=== PATIENT | male | born 2000 | race Caucasian/White ===

== ENCOUNTER → 2022-05-06 18:50 | Outpatient (CLI) | payer OTHER, SELFPAY ==
--- NOTE | 2022-05-06 18:55 | DI.MRI.S_ITS ---
PROCEDURE: MR HEAD/BRAIN WO/W CON INDICATIONS: DIZZINESS GIDDINESS/LT. EAR TINNITUS/VERTIGO TECHNIQUE: Noncontrast axial T1 spin echo, axial T2 fast spin echo, sagittal and axial FLAIR, coronal T2 fast spin echo, axial gradient echo, axial diffusion and ADC through the brain. After the administration of contrast, axial and coronal and sagittal 3D VIBE or T1 spin echo with fat saturation through the brain. COMPARISON: None. FINDINGS: Image quality: Excellent. CSF Spaces: Basal cisterns are patent. No extra-axial fluid collections. Ventricles are normal in size and shape. Brain: No midline shift. No intracranial bleeds. No abnormal intracranial enhancement. The brainstem appears normal. There is mild prominence of the pineal gland demonstrating increased T2 signal suggestive of fluid. No enhancement. Diffusion-weighted images demonstrate no acute ischemic insults. No chronic ischemic insults. Normal intravascular flow voids are present. Skull and face: Calvarial marrow is normal in signal. Orbits appear normal. Sinuses: Sinuses and mastoids appear clear. IMPRESSION: 1. No acute intracranial process. 2. 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 Dictated by: Amanda Rhodes M.D. on 05/09/2022 at 11:31 Approved by: Amanda Rhodes M.D. on 05/09/2022 at 11:35
== END ==
PROVIDERS: Referring Provider Internal Medicine; Visit Provider Internal Medicine
DX: H93.12 Tinnitus, left ear (principal); R42 Dizziness and giddiness
CPT/HCPCS: 70553; A9579

== ENCOUNTER 2022-12-04 16:28 | Emergency (ER) | payer OTHER, SELFPAY ==
[2022-12-04] VITALS (8 sets, daily range): BP systolic 123–151; BP diastolic 76–84; PULSE 90–115; RESP 15–25; TEMP 36.6–36.9; O2SAT 96–100
--- NOTE | 2022-12-04 17:08 | DI.CT.S_ITS ---
PROCEDURE: CT HEAD/BRAIN WO CON INDICATIONS: vertigo TECHNIQUE: Noncontrast 4.5 mm thick angled axial sections acquired from the foramen magnum to the vertex, with coronal and sagittal reformats. For radiation dose reduction, the following was used: automated exposure control, adjustment of mA and/or kV according to patient size. COMPARISON: None. FINDINGS: Image quality: Excellent. CSF spaces: Basal cisterns are patent. No extra-axial fluid collections. Ventricles are normal in size and shape. Brain: No midline shift. No intracranial masses or hemorrhage. Marsh-white matter interface is normal. Skull and face: Calvarium and visualized facial bones are intact, without suspicious lesions. Sinuses: Visualized sinuses and mastoids are clear. IMPRESSION: Normal CT of the brain Approved by: Misael Mathis M.D. on 12/04/2022 at 16:52
--- NOTE | 2022-12-04 17:09 | ED_ITS ---
HPI - Dizziness General Chief Complaint: Dizziness Stated Complaint: Vertigo episode Time Seen by Provider: 12/04/22 17:07 Source: patient Mode of arrival: Ambulatory History of Present Illness HPI Narrative: Patient is a 22-year-old male without significant past medical history but has had episodes of vertigo presenting today with dizziness nausea. reports that they did go out to a bar last night and drank some alcohol. He woke up this morning and was quite dizzy. She reports that he is never been this dizzy. She reports that he was stumbling. He is unable to give significant history he is tearful and seems quite anxious. But moving all of his extremities. He did have an MRI in May of 2022 for vertigo which was negative. He denies any other drug use and denies taking any further medications Related Data Allergies Allergy/AdvReac Type Severity Reaction Status Date / Time No Known Drug Allergies Allergy Verified 12/04/22 17:43 Review of Systems Review of Systems ROS Unobtainable: All systems reviewed & are unremarkable except as noted in HPI and below Exam Initial Vital Signs Initial Vital Signs: Vital Signs Temperature 98.4 F 12/04/22 16:54 Pulse Rate 115 H 12/04/22 16:54 Respiratory Rate 25 H 12/04/22 16:54 Blood Pressure 151/84 H 12/04/22 16:54 Pulse Oximetry 100 12/04/22 16:54 Oxygen Delivery Method Room Air 12/04/22 16:54 GENERAL: Tearful 22-year-old male HEENT: Head atraumatic,EOMI, pupils reactive, face symmetric, moist mucous membranes CARDIOVASCULAR: Regular rate and rhythm without murmurs, rubs or gallops. RESPIRATORY: Tachypneic clear breath sounds bilaterally ABDOMEN: Soft, nontender. Normoactive bowel sounds all 4 quadrants. No guarding or rebound. EXTREMITIES: Normal range of motion, no clubbing or edema. Neurovascularly intact NEUROLOGICAL: Alert and oriented x4. [place] strength equal bilaterally good [id number] SKIN: Warm, dry, no laceration, no petechiae, no rashes or lesions. Course Orders Ordered: Discontinued Medications Sodium Chloride (Normal Saline 0.9%) 1,000 mls @ 1,000 mls/hr IV CONT SAHIL Last Infusion: 12/04/22 18:50 Dose: 0 mls/hr Documented By: Admin: 12/04/22 17:44 Dose: 1,000 mls/hr Documented By: ESTELLA Lorazepam (Lorazepam 2 Mg/Ml Inj) 1 mg IV NOW ONE Stop: 12/04/22 17:08 Last Admin: 12/04/22 17:15 Dose: 1 mg Documented By: BS Vital Signs Vital signs: Vital Signs - 8 hr 12/04/22 16:54 12/04/22 17:22 12/04/22 17:22 Temperature 98.4 F Pulse Rate 115 H 95 H Respiratory Rate 25 H 15 Blood Pressure 151/84 H 132/78 Pulse Oximetry 100 96 Oxygen Delivery Method Room Air 12/04/22 17:36 12/04/22 17:37 12/04/22 17:37 Temperature Pulse Rate 96 H 95 H Respiratory Rate 18 Blood Pressure 123/84 Pulse Oximetry 97 98 Oxygen Delivery Method 12/04/22 18:00 12/04/22 18:00 Temperature Pulse Rate 92 H Respiratory Rate 18 Blood Pressure 133/78 Pulse Oximetry 98 Oxygen Delivery Method MDM - Dizziness Lab Data 12/04/22 17:05 12/04/22 17:05 Labs: Lab Results 12/04/22 12/04/22 12/04/22 Range/Units 17:05 17:05 17:05 WBC 9.9 (4.5-11.0) X10^3/uL RBC 5.20 (4.5-5.9) X10^6/uL Hgb 16.5 (13.5-17.5) g/dL Hct 46.6 (41-53) % MCV 89.7 (80-100) fL MCH 31.7 (26-34) PG MCHC 35.3 (30-36) % RDW 12.8 (11.6-14.8) % Plt Count 255 (150-400) X10^3/uL Neut % (Auto) 64.7 (50-75) % Lymph % (Auto) 26.6 (25-40) % [place] % (Auto) 6.4 (3-14) % Eos % (Auto) 1.7 L (2-4) % Baso % (Auto) 0.6 (0-2) % Neut # (Auto) 6400 (7173-6999) /uL Lymph # (Auto) 2600 (0729-9555) /uL [place] # (Auto) 600 (0-900) /uL Eos # (Auto) 200 (0-450) /uL Baso # (Auto) 100 (0-100) /uL PT 11.6 (10.1-12.7) SECONDS INR 1.0 (0.9-1.3) APTT 28 (26-36) SECONDS Sodium (137-145) mmol/L Potassium (3.4-5.1) mmol/L Chloride (98-107) mmol/L Carbon Dioxide (22-32) mmol/L BUN (9-20) mg/dL Creatinine (0.66-1.25) mg/dL Estimated GFR (>60) mL/min BUN/Creatinine Ratio (6-22) Glucose (70-100) mg/dL Lactate (0.7-2.1) mmol/L Calcium (8.4-10.2) mg/dL Total Bilirubin (0.2-1.3) mg/dL AST (17-59) IU/L ALT (<50) IU/L Alkaline Phosphatase (38-126) U/L Ammonia (9-30) umol/L Total Creatine Kinase 192 H (55-170) U/L CK-MB (CK-2) 0.79 (<2.37) ng/mL CK-MB (CK-2) Rel Index 0.4 L (1.5-5.0) % Troponin I < 0.012 (0.01-0.034) ng/mL Total Protein (6.3-8.2) g/dL Albumin (3.5-5.0) g/dL Globulin (1.7-4.1) g/dL Albumin/Globulin Ratio (1.0-2.8) Procalcitonin 0.03 (<0.5) ng/mL TSH (0.47-4.68) uIU/mL Prolactin (3.7-17.9) ng/mL Urine Color Urine Appearance Urine pH (4.5-8.0) Ur Specific [place] (1.000-1.035) Urine Protein (Negative) Urine Glucose (UA) (Negative) g/dL Urine Ketones (NEGATIVE) Urine Occult Blood (Negative) Urine Nitrate (Negative) Urine Bilirubin (NEGATIVE) Urine Urobilinogen (0.2) E.U./dL Ur Leukocyte Esterase (NEGATIVE) Urine RBC (0-5/HPF) Urine WBC (0-5/HPF) Urine Bacteria (None) Salicylates (<20) mg/dL U Opiates 300ng/mL cut (Negative) Ur Oxycodone Screen (Negative) Urine Methadone Screen (Negative) Acetaminophen (10-30) ug/mL Ur Barbiturates Screen (Negative) U Tricyclic Antidepress (Negative) Ur Phencyclidine Scrn (Negative) Ur Amphetamines Screen (Negative) U Methamphetamines Scrn (Negative) Ur MDMA Scrn (Ecstasy) (Negative) U Benzodiazepines Scrn (Negative) Urine Cocaine Screen (Negative) U Marijuana (THC) Screen (Negative) Ethyl Alcohol ( - 10) mg/dL 12/04/22 12/04/22 12/04/22 Range/Units 17:05 17:05 17:05 WBC (4.5-11.0) X10^3/uL RBC (4.5-5.9) X10^6/uL Hgb (13.5-17.5) g/dL Hct (41-53) % MCV (80-100) fL MCH (26-34) PG MCHC (30-36) % RDW (11.6-14.8) % Plt Count (150-400) X10^3/uL Neut % (Auto) (50-75) % Lymph % (Auto) (25-40) % [place] % (Auto) (3-14) % Eos % (Auto) (2-4) % Baso % (Auto) (0-2) % Neut # (Auto) (4613-7123) /uL Lymph # (Auto) (6688-9782) /uL [place] # (Auto) (0-900) /uL Eos # (Auto) (0-450) /uL Baso # (Auto) (0-100) /uL PT (10.1-12.7) SECONDS INR (0.9-1.3) APTT (26-36) SECONDS Sodium 135 L (137-145) mmol/L Potassium 3.8 (3.4-5.1) mmol/L Chloride 98 (98-107) mmol/L Carbon Dioxide 26 (22-32) mmol/L BUN 15 (9-20) mg/dL Creatinine 0.86 (0.66-1.25) mg/dL Estimated GFR > 60 (>60) mL/min BUN/Creatinine Ratio 17.4 (6-22) Glucose 98 (70-100) mg/dL Lactate 1.6 (0.7-2.1) mmol/L Calcium 10.3 H (8.4-10.2) mg/dL Total Bilirubin 1.4 H (0.2-1.3) mg/dL AST 40 (17-59) IU/L ALT 50 H (<50) IU/L Alkaline Phosphatase 68 (38-126) U/L Ammonia (9-30) umol/L Total Creatine Kinase (55-170) U/L CK-MB (CK-2) (<2.37) ng/mL CK-MB (CK-2) Rel Index (1.5-5.0) % Troponin I (0.01-0.034) ng/mL Total Protein 8.6 H (6.3-8.2) g/dL Albumin 5.0 (3.5-5.0) g/dL Globulin 3.6 (1.7-4.1) g/dL Albumin/Globulin Ratio 1.4 (1.0-2.8) Procalcitonin (<0.5) ng/mL TSH 2.79 (0.47-4.68) uIU/mL Prolactin 23.2 H (3.7-17.9) ng/mL Urine Color Urine Appearance Urine pH (4.5-8.0) Ur Specific [place] (1.000-1.035) Urine Protein (Negative) Urine Glucose (UA) (Negative) g/dL Urine Ketones (NEGATIVE) Urine Occult Blood (Negative) Urine Nitrate (Negative) Urine Bilirubin (NEGATIVE) Urine Urobilinogen (0.2) E.U./dL Ur Leukocyte Esterase (NEGATIVE) Urine RBC (0-5/HPF) Urine WBC (0-5/HPF) Urine Bacteria (None) Salicylates < 1.0 (<20) mg/dL U Opiates 300ng/mL cut (Negative) Ur Oxycodone Screen (Negative) Urine Methadone Screen (Negative) Acetaminophen < 10 (10-30) ug/mL Ur Barbiturates Screen (Negative) U Tricyclic Antidepress (Negative) Ur Phencyclidine Scrn (Negative) Ur Amphetamines Screen (Negative) U Methamphetamines Scrn (Negative) Ur MDMA Scrn (Ecstasy) (Negative) U Benzodiazepines Scrn (Negative) Urine Cocaine Screen (Negative) U Marijuana (THC) Screen (Negative) Ethyl Alcohol < 10 ( - 10) mg/dL 12/04/22 12/04/22 12/04/22 Range/Units 17:30 18:51 18:51 WBC (4.5-11.0) X10^3/uL RBC (4.5-5.9) X10^6/uL Hgb (13.5-17.5) g/dL Hct (41-53) % MCV (80-100) fL MCH (26-34) PG MCHC (30-36) % RDW (11.6-14.8) % Plt Count (150-400) X10^3/uL Neut % (Auto) (50-75) % Lymph % (Auto) (25-40) % [place] % (Auto) (3-14) % Eos % (Auto) (2-4) % Baso % (Auto) (0-2) % Neut # (Auto) (3511-3978) /uL Lymph # (Auto) (1886-6953) /uL [place] # (Auto) (0-900) /uL Eos # (Auto) (0-450) /uL Baso # (Auto) (0-100) /uL PT (10.1-12.7) SECONDS INR (0.9-1.3) APTT (26-36) SECONDS Sodium (137-145) mmol/L Potassium (3.4-5.1) mmol/L Chloride (98-107) mmol/L Carbon Dioxide (22-32) mmol/L BUN (9-20) mg/dL Creatinine (0.66-1.25) mg/dL Estimated GFR (>60) mL/min BUN/Creatinine Ratio (6-22) Glucose (70-100) mg/dL Lactate (0.7-2.1) mmol/L Calcium (8.4-10.2) mg/dL Total Bilirubin (0.2-1.3) mg/dL AST (17-59) IU/L ALT (<50) IU/L Alkaline Phosphatase (38-126) U/L Ammonia < 9 L (9-30) umol/L Total Creatine Kinase (55-170) U/L CK-MB (CK-2) (<2.37) ng/mL CK-MB (CK-2) Rel Index (1.5-5.0) % Troponin I (0.01-0.034) ng/mL Total Protein (6.3-8.2) g/dL Albumin (3.5-5.0) g/dL Globulin (1.7-4.1) g/dL Albumin/Globulin Ratio (1.0-2.8) Procalcitonin (<0.5) ng/mL TSH (0.47-4.68) uIU/mL Prolactin (3.7-17.9) ng/mL Urine Color Yellow Urine Appearance Clear Urine pH 7.0 (4.5-8.0) Ur Specific [place] 1.010 (1.000-1.035) Urine Protein Negative (Negative) Urine Glucose (UA) Negative (Negative) g/dL Urine Ketones Negative (NEGATIVE) Urine Occult Blood Negative (Negative) Urine Nitrate Negative (Negative) Urine Bilirubin Negative (NEGATIVE) Urine Urobilinogen 0.2 (0.2) E.U./dL Ur Leukocyte Esterase Negative (NEGATIVE) Urine RBC None seen (0-5/HPF) Urine WBC None seen (0-5/HPF) Urine Bacteria None seen (None) Salicylates (<20) mg/dL U Opiates 300ng/mL cut Negative (Negative) Ur Oxycodone Screen Negative (Negative) Urine Methadone Screen Negative (Negative) Acetaminophen (10-30) ug/mL Ur Barbiturates Screen Negative (Negative) U Tricyclic Antidepress Negative (Negative) Ur Phencyclidine Scrn Negative (Negative) Ur Amphetamines Screen Negative (Negative) U Methamphetamines Scrn Negative (Negative) Ur MDMA Scrn (Ecstasy) Negative (Negative) U Benzodiazepines Scrn Positive H (Negative) Urine Cocaine Screen Negative (Negative) U Marijuana (THC) Screen Positive H (Negative) Ethyl Alcohol ( - 10) mg/dL Imaging Data CT scan - head: Radiologist's Impression: PROCEDURE:? CT HEAD/BRAIN WO CON ? INDICATIONS:? vertigo ? TECHNIQUE:? Noncontrast 4.5 mm thick angled axial sections acquired from the foramen magnum to the vertex, with coronal and sagittal reformats.? For radiation dose reduction, the following was used:? automated exposure control, adjustment of mA and/or kV according to patient size.? ? COMPARISON:? None. ? FINDINGS:? Image quality:? Excellent.? ? CSF spaces:? Basal cisterns are patent.? No extra-axial fluid collections.? Ventricles are normal in size and shape.? ? Brain:? No midline shift.? No intracranial masses or hemorrhage.? Marsh-white matter interface is normal.? ? Skull and face:? Calvarium and visualized facial bones are intact, without suspicious lesions.? ? Sinuses:? Visualized sinuses and mastoids are clear.? ? IMPRESSION:? Normal CT of the brain ? ? ? Approved by: Misael Mathis M.D. on 12/04/2022 at 16:52? ECG Data Interpretation: Normal sinus rhythm rate 102 UT interval 170 QRS [address] changes or T- wave inversions no priors to compare MDM Narrative Medical decision making narrative: Patient 22-year-old male who does have a history of vertigo he had a negative MRI in 2021. Presents today with worsening case of vertigo however he is tearful and hyperventilating upon exam, definite anxiety component. Given 1 dose of Ativan which seems to help. Blood work is overall reassuring. No leukocytosis anemia electrolyte abnormality EDSON. Prolactin is mildly elevated 23.2 however he is no signs or symptoms of seizure. He did go out drinking alcohol the previous evening which may have exacerbated his vertigo. He overall is feeling significantly better feels right-hand able to go home. Discharge Plan Departure Patient Disposition: Home Clinical Impression: Vertigo Instructions: DI for Vertigo Activity Restrictions/Additional Instructions: *You have been diagnosed with vertigo *What to do: At this time please go home rest and increase fluid intake. This is likely an exacerbation of your vertigo *Continue to take medications as directed *Follow up with your primary care provider in 2-3 days or call [phone] *Return to ER if you should have persistent dizziness passing out program services assistant vomiting [or] any new, worsening or concerning symptoms Stand Alone Forms: Patient Portal/API
[2022-12-04] MEDS: LORazepam 2 MG/ML INJ 1 MG IV (17:15)
[2022-12-04 17:28] LABS: Add Manual Diff / Slide Review NO; Basophils Absolute Auto 100 /uL (0-100); Basophils Percent Auto 0.6 % (0-2); Eosinophils Absolute Auto 200 /uL (0-450); Eosinophils Percent Auto 1.7 % (2-4); Hematocrit 46.6 % (41-53); Hemoglobin 16.5 g/dL (13.5-17.5); Lymphocytes Absolute Auto 2600 /uL (1100-4500); Lymphocytes Percent Auto 26.6 % (25-40); Mean Corpuscular HGB Conc 35.3 % (30-36); Mean Corpuscular Hemoglobin 31.7 PG (26-34); Mean Corpuscular Volume 89.7 fL (80-100); Monocytes Absolute Auto 600 /uL (0-900); Monocytes Percent Auto 6.4 % (3-14); Neutrophils Absolute Auto 6400 /uL (1500-7000); Neutrophils Percent Auto 64.7 % (50-75); Platelet Count 255 X10^3/uL (150-400); Red Cell Distribution Width 12.8 % (11.6-14.8); White Blood Cell Count 9.9 X10^3/uL (4.5-11.0)
[2022-12-04 17:32] LABS: Prothrombin Time 11.6 SECONDS (10.1-12.7)
[2022-12-04 17:35] LABS: PTT Partial Thromboplastin Tim 28 SECONDS (26-36)
[2022-12-04 17:37] LABS: Lactate (Lactic Acid) 1.6 mmol/L (0.7-2.1)
[2022-12-04 17:39] LABS: Acetaminophen < 10 ug/mL (10-30); Alanine Aminotransferase 50 IU/L (<50); Albumin Globulin Ratio 1.4 (1.0-2.8); Alkaline Phosphatase 68 U/L (38-126); Aspartate Aminotransferase 40 IU/L (17-59); BUN Creatinine Ratio 17.4 (6-22); Bilirubin Total 1.4 mg/dL (0.2-1.3); Blood Urea Nitrogen 15 mg/dL (9-20); Calcium 10.3 mg/dL (8.4-10.2); Carbon Dioxide 26 mmol/L (22-32); Chloride 98 mmol/L (98-107); Creatine Kinase 192 U/L (55-170); Estimated Glomerular Filt Rate > 60 mL/min (>60); Ethanol (ETOH) < 10 mg/dL; Globulin 3.6 g/dL (1.7-4.1); Glucose 98 mg/dL (70-100); HEMOLYSIS < 15 (0-50); Potassium 3.8 mmol/L (3.4-5.1); Salicylate < 1.0 mg/dL (<20); Sodium 135 mmol/L (137-145); Total Protein 8.6 g/dL (6.3-8.2)
[2022-12-04] MEDS: SODIUM CHLORIDE 0.9% 1,000 ML 1000 ML IV (17:44)
[2022-12-04 17:51] LABS: Troponin I < 0.012 ng/mL (0.01-0.034)
[2022-12-04 17:54] LABS: CKMB % Relative Index 0.4 % (1.5-5.0); Creatine Kinase MB 0.79 ng/mL (<2.37)
[2022-12-04 17:55] LABS: Ammonia (NH3) < 9 umol/L (9-30)
[2022-12-04 17:55] LABS: Procalcitonin 0.03 ng/mL (<0.5); Prolactin 23.2 ng/mL (3.7-17.9)
[2022-12-04 18:09] LABS: Thyroid Stimulating Hormone 2.79 uIU/mL (0.47-4.68)
[2022-12-04 18:56] LABS: Appearance Urine UA CLEAR; Bilirubin Urine UA NEGATIVE (NEGATIVE); Color Urine UA YELLOW; Glucose Urine UA NEGATIVE (Negative); Ketones Urine UA NEGATIVE (NEGATIVE); Leukocyte Esterase Urine UA NEGATIVE (NEGATIVE); Nitrite Urine UA NEGATIVE (Negative); Occult Blood Urine UA NEGATIVE (Negative); Protein Urine UA NEGATIVE (Negative); Urobilinogen Urine UA 0.2 E.U./dL (0.2)
[2022-12-04 19:04] LABS: UR Morphine/Opiate cutoff 300 Negative (Negative); Ur Creatinine Normal (Normal); Ur Specific Gravity Normal (Normal); Urine Amphetamines Negative (Negative); Urine Barbiturates Negative (Negative); Urine Benzodiazepines Positive (Negative); Urine Cocaine Negative (Negative); Urine MDMA Negative (Negative); Urine Methadone Negative (Negative); Urine Methamphetamines Negative (Negative); Urine Oxycodone Negative (Negative); Urine Phencyclidine Negative (Negative); Urine Tetrahydrocannabinol Positive (Negative); Urine Tricyclic Antidepressant Negative (Negative); Urine pH Normal (Normal)
[2022-12-04 19:14] LABS: Bacteria Urine None Seen; RBC Urine None Seen (0-5/HPF); WBC Urine None Seen (0-5/HPF)
== END 2022-12-04 19:23 | disposition home or self-care (01) ==
PROVIDERS: Emergency Provider Emergency Medicine
DX: R42 Dizziness and giddiness (principal); R41.82 Altered mental status, unspecified; R11.0 Nausea
CPT/HCPCS: 36415; 70450; 80053; 80305; 80320; 80329; 81001; 82140; 82550; 82553; 83605; 84145; 84146; 84443; 84484; 85025; 85610; 85730; 87086; 93005; 93010; 99284; G0480; J2060